=== PATIENT | male | born 1995 | race Caucasian/White ===

== ENCOUNTER 2017-01-05 20:32 | Emergency (ER) | payer OTHER ==
[~2017-01-05] VITALS: Ht 180.3 cm; Wt 63.5 kg
[2017-01-05 20:50] VITALS: BP 110/66
[2017-01-05] MEDS ORDERED: NAPR500T PO (20:52)
--- NOTE | 2017-01-05 20:53 | PHYS DOC ---
Past History Past Medical History: No Pertinent History Past Surgical History: No Surgical History Smoking: Cigarettes Social History Adult General HPI HPI Patient is a 21 year old male who presents with right foot pain. Twisted his foot around 1600 PM. Has pain and swelling now to right lateral foot area. No other injuries. Review of Systems Review of Systems Musculoskeletal: right foot pain Integument: Denies rash or skin lesions; no laceration. Neurologic: Denies headache, focal weakness or sensory changes Physical Exam Physical Exam Constitutional: Well developed, well nourished, no acute distress, non-toxic appearance. Extremities:Right lower leg: no pain or swelling of knee or ankle. NVI distally ; normal cap refill. Right foot with pain, swelling and ecchymosis over base of the 5th MT. Neurologic: Alert and oriented X 3, normal motor function, normal sensory function, no focal deficits noted. Radiology/Procedures Radiology/Procedures Right foot xray interpreted by myself at 2100 PM: fracture at base of 5th MT. Course & Med Decision Making Course & Med Decision Making Evaluated patient. Xray w fracture of base of 5th MT. Placed in posterior short leg OCL splint; non weight bearing and crutches. Follow up with ortho ([place]) Dragon Disclaimer Dragon Disclaimer This chart was dictated in whole or in part using Voice Recognition software in a busy, high-work load, and often noisy Emergency Department environment. It may contain unintended and wholly unrecognized errors or omissions. Departure Departure: Impression: Primary Impression: Closed fracture of 5th metacarpal Disposition: 01 HOME, SELF-CARE Condition: STABLE Referrals: PCP,UNKNOWN (PCP) Patient Instructions: Cast or Splint Care, Crutch Use, Metatarsal Fracture with [facility] Additional Instructions: NEED TO FOLLOW UP WITH ORTHO AT [facility] Scripts Naproxen (NAPROSYN) 500 Mg Tablet 1 TAB PO BID, #30 TAB 1 Refill Prov: JEROMY PATTEN MD 01/05/17 Problem Qualifiers Primary Impression: Closed fracture of 5th metacarpal Encounter type: initial encounter Metacarpal location: base Fracture alignment: nondisplaced Laterality: right Qualified Codes: S62.346A - Nondisplaced fracture of base of fifth metacarpal bone, right hand, initial encounter for closed fracture JEROMY PATTEN MD Jan 05, 2017 20:53
[2017-01-05] MEDS ORDERED: NAPROXEN 500 MG TABLET PO ONE (21:15)
--- NOTE | 2017-01-06 07:54 | RAD ---
Exam performed: Right foot 3 views. Clinical Indication: Patient stepped on a rock and bent the foot , complaining of pain and swelling of the base of fifth metatarsal. Date of Service:01/05/17. Comparison :None available Findings: PA, oblique and lateral radiographs of the foot are obtained. There is a acute nondisplaced fracture base of fifth metatarsal with overlying soft tissue swelling. The joint spaces are well preserved and the articular margins are smooth. Impression: Acute nondisplaced fracture base of fifth metatarsal.
== END 2017-01-05 21:35 | disposition home or self-care (01) ==
LOC: ER 20:32
DX: S62.346A Nondisplaced fracture of base of fifth metacarpal bone, right hand, initial encounter for closed fracture (principal); F17.210 Nicotine dependence, cigarettes, uncomplicated; X58.XXXA Exposure to other specified factors, initial encounter; Y93.89 Activity, other specified; Y99.8 Other external cause status; Y92.89 Other specified places as the place of occurrence of the external cause
CPT/HCPCS: 29515; 73630; 99284-25

== ENCOUNTER 2018-02-14 08:51 | Emergency (ER) | payer OTHER ==
[~2018-02-14] VITALS: Ht 180.3 cm; Wt 61.2 kg
[~2018-02-14 08:51] MED LIST: NAPR-683 PO
[2018-02-14 08:55] VITALS: BP 162/109
[2018-02-14] MEDS ORDERED: IBUP800T19 PO (09:23)
--- NOTE | 2018-02-14 09:24 | PHYS DOC ---
Past History Past Medical History: No Pertinent History Past Surgical History: No Surgical History Smoking: Cigarettes Alcohol Use: None Drug Use: None Adult General Chief Complaint Chief Complaint: KNEE INJURY HPI HPI Patient is a 22 year old male who presents with complaining of left knee pain for the last 1 week after hyperextended his left knee. Patient states he has some bruises around his left that getting better. Patient denies focal neuro deficit and other injuries and states he had this problem previously. Review of Systems Review of Systems Constitutional: Denies fever or chills [] Eyes: Denies change in visual acuity, redness, or eye pain [] HENT: Denies nasal congestion or sore throat [] Respiratory: Denies cough or shortness of breath [] Cardiovascular: No additional information not addressed in HPI [] GI: Denies abdominal pain, nausea, vomiting, bloody stools or diarrhea [] : Denies dysuria or hematuria [] Musculoskeletal: Denies back pain, reports joint pain [] Integument: Denies rash or skin lesions [] Neurologic: Denies headache, focal weakness or sensory changes [] Endocrine: Denies polyuria or polydipsia [] All other systems were reviewed and found to be within normal limits, except as documented in this note. Physical Exam Physical Exam Constitutional: Well developed, well nourished, no acute distress, non-toxic appearance. [] HENT: Normocephalic, atraumatic Eyes: PERRLA, EOMI, conjunctiva normal, no discharge. [] Neck: Normal range of motion, no tenderness, supple, no stridor. [] Cardiovascular:Heart rate regular rhythm, no murmur [] Lungs & Thorax: Bilateral breath sounds clear to auscultation [] Skin: Warm, dry, no erythema, no rash. [] Back: No tenderness, no CVA tenderness. [] Extremities: Left knee without deformity or edema or ecchymosis, normal range of motion, no tenderness, no cyanosis, no clubbing, ROM intact, no edema. [] Neurologic: Alert and oriented X 3, normal motor function, normal sensory function, no focal deficits noted. [] Psychologic: Affect normal, judgement normal, mood normal. [] EKG EKG [] Radiology/Procedures Radiology/Procedures [] Course & Med Decision Making Course & Med Decision Making discharge: I've spoken with the patient and/or caregivers. I've explained the patient's condition, diagnosis and treatment plan based on information available to me at this time. I've answered the patient's and/or caregivers questions and addressed any concerns. The patient and/or caregivers have a good understanding the patient's diagnosis, condition and treatment plan as can be expected at this point. Vital signs have been stabilized. The patient's condition is stable for discharge from the emergency department. The patient will pursue further outpatient evaluation with her primary care provider or other designated consulting physician as outlined in the discharge instructions. Patient and/or caregivers are agreeable to this plan of care and follow-up instructions have been explained in detail. The patient and/or caregivers have received these instructions in written format and expressed understanding of these discharge instructions. The patient and her caregivers are aware that if any significant change in condition or worsening of symptoms should prompt him to immediately return to this of the closest emergency department. If an emergent department is not readily available I would encourage him to call 911. Dragon Disclaimer Dragon Disclaimer This electronic medical record was generated, in whole or in part, using a voice recognition dictation system. Departure Departure: Impression: Primary Impression: Knee sprain Additional Impression: Elevated blood pressure reading without diagnosis of hypertension Disposition: HOME, SELF-CARE (At 0921) Condition: STABLE Referrals: LEE PRECIADO PA-C (PCP) Patient Instructions: Form - Blood Pressure Record Sheet, How to Take Your Blood Pressure, [id number], Knee Sprain Additional Instructions: Apply ice on left knee Follow-up with your primary care physician in 3-5 days Return to ER if not getting better Scripts Ibuprofen (IBUPROFEN) 800 Mg Tablet 800 MG PO TID PRN for PAIN, #30 TAB Prov: GISELLE HAYES MD 02/14/18 Problem Qualifiers GISELLE HAYES MD Feb 14, 2018 09:24
== END 2018-02-14 09:35 | disposition home or self-care (01) ==
LOC: ER 08:51
DX: S83.92XA Sprain of unspecified site of left knee, initial encounter (principal); R03.0 Elevated blood-pressure reading, without diagnosis of hypertension; F17.210 Nicotine dependence, cigarettes, uncomplicated; X50.9XXA Other and unspecified overexertion or strenuous movements or postures, initial encounter; Y93.89 Activity, other specified; Y92.89 Other specified places as the place of occurrence of the external cause; Y99.8 Other external cause status
CPT/HCPCS: 99282

== ENCOUNTER 2018-07-15 21:10 | Emergency (ER) | payer OTHER ==
[~2018-07-15] VITALS: Ht 180.3 cm; Wt 68.0 kg
[~2018-07-15 21:10] MED LIST changes: +IBUP800T19 PO
--- NOTE | 2018-07-15 21:35 | ED.ADGEN ---
Past History Past Medical History: No Pertinent History Past Surgical History: No Surgical History Smoking: Cigarettes Alcohol Use: None Drug Use: None Adult General Chief Complaint Chief Complaint ".. All of a sudden I got this really bad dental pain... 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 Patient does have findings of dental decay and prior dental fillings. No pointing abscess. No trismus. No adenopathy. No history immunosuppression. No history of trauma. No history of travel. No history of specific ill contacts. She normally follows at [facility]. Has not been overseas recently. Review of Systems Review of Systems Constitutional: Denies fever or chills [] Eyes: Denies change in visual acuity, redness, or eye pain [] HENT: Denies nasal congestion or sore throat []complaints of dental pain Respiratory: Denies cough or shortness of breath [] Cardiovascular: No additional information not addressed in HPI [] GI: Denies abdominal pain, nausea, vomiting, bloody stools or diarrhea [] : Denies dysuria or hematuria [] Musculoskeletal: Denies back pain or joint pain [] Integument: Denies rash or skin lesions [] Neurologic: Denies headache, focal weakness or sensory changes [] Endocrine: Denies polyuria or polydipsia [] All other systems were reviewed and found to be within normal limits, except as documented in this note. Family History Family History Noncontributory Current Medications Current Medications Current Medications Medications (Trade) Dose Ordered Sig/Ashley Start Time Stop Time Status Last Admin Dose Admin Cephalexin HCl (Keflex) 250 mg STK-MED ONCE 07/15/18 22:20 07/15/18 22:34 DC Hydrocodone Bitartrate/ Ibuprofen (Vicoprofen 7.5-200) 1 tab STK-MED ONCE 07/15/18 22:21 07/15/18 22:34 DC Allergies Allergies Allergies Coded Allergies Type Severity Reaction Last Updated Verified No Known Drug Allergies 02/14/18 No Physical Exam Physical Exam Constitutional: Well developed, well nourished, in acute distress, non-toxic appearance. [] HENT: Normocephalic, atraumatic, bilateral external ears normal, oropharynx moist, no oral exudates, nose normal. []Some gingivitis. Fillings. Molar tenderness on percussion left posterior Eyes: PERRLA, EOMI, conjunctiva normal, no discharge. [] Neck: Normal range of motion, no tenderness, supple, no stridor. [] Cardiovascular:Heart rate regular rhythm, no murmur [] Lungs & Thorax: Bilateral breath sounds equal at apex on auscultation [] Abdomen: Bowel sounds normal, soft, no tenderness, no masses, no pulsatile masses. [] Skin: Warm, dry, no erythema, no rash. [] Back: No tenderness, no CVA tenderness. [] Extremities: No tenderness, no cyanosis, no clubbing, ROM intact, no edema. [] Neurologic: Alert and oriented X 3, normal motor function, normal sensory function, no focal deficits noted. [] Psychologic: Affect normal, judgement normal, mood normal. [] Current Patient Data Vital Signs Vital Signs Date Time Temp Pulse Resp B/P (MAP) Pulse Ox O2 Delivery O2 Flow Rate FiO2 07/15/18 21:44 98.1 69 17 98 Room Air EKG EKG [] Radiology/Procedures Radiology/Procedures [] Course & Med Decision Making Course & Med Decision Making Pertinent Labs and Imaging studies reviewed. (See chart for details) Follow-up with [facility]. Take Keflex 500 mg 3 times a day. Tylenol and ibuprofen for pain. For marked pain may take Vicoprofen up 4 times a day. Must see a dentist. [] Final Impression Final Impression 1. Dental Pain[] 2. Dental caries 3. Mild gingivitis Dragon Disclaimer Dragon Disclaimer This electronic medical record was generated, in whole or in part, using a voice recognition dictation system. Dragon Disclaimer This chart was dictated in whole or in part using Voice Recognition software in a busy, high-work load, and often noisy Emergency Department environment. It may contain unintended and wholly unrecognized errors or omissions. 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 Discharge Information Condition at Discharge: Stable Disposition/Orders: D/C to Home Dischare Medications Current Medications Hydrocodone Bitartrate/ Ibuprofen (Vicoprofen 7.5-200) 2 tab 1X ONCE PO Last administered on 07/15/18at 22:25; Admin Dose 2 TAB; Start 07/15/18 at 22:15; Stop 07/15/18 at 22:34; Status DC Cephalexin HCl (Keflex) 500 mg 1X ONCE PO Last administered on 07/15/18at 22:24 ; Admin Dose 500 MG; Start 07/15/18 at 22:15; Stop 07/15/18 at 22:34; Status DC Hydrocodone Bitartrate/ Ibuprofen (Vicoprofen 7.5-200) 1 tab STK-MED ONCE .ROUTE ; Start 07/15/18 at 22:21; Stop 07/15/18 at 22:34; Status DC Cephalexin HCl (Keflex) 250 mg STK-MED ONCE .ROUTE ; Start 07/15/18 at 22:20; Stop 07/15/18 at 22:34; Status DC Active Scripts Active Keflex (Cephalexin) 500 Mg Capsule 500 Mg PO TID 10 Days Hydrocodone-Ibuprofen 7.5-200 (Hydrocodone/Ibuprofen) 1 Each Tablet 1 Tab PO PRN Q6HRS PRN Ibuprofen 800 Mg Tablet 800 Mg PO TID PRN Naprosyn (Naproxen) 500 Mg Tablet 1 Tab PO BID TOYIN CUMMINGS MD Jul 15, 2018 21:35
[2018-07-15 21:44] VITALS: BP 112/65
[2018-07-15] MEDS ORDERED: CEPH-264 PO (22:13)
[2018-07-15] MEDS ORDERED: HYDR-1179 PO (22:13)
[2018-07-15] MEDS ORDERED: HYDROcodon/IBUPROFEN 7.5/200MG 1 TAB TABLET PO ONE (22:15)
[2018-07-15] MEDS ORDERED: CEPHALEXIN 250 MG CAPSULE PO ONE (22:15)
[2018-07-15] MEDS ORDERED: CEPHALEXIN 250 MG CAPSULE ONE (22:20)
[2018-07-15] MEDS ORDERED: HYDROcodon/IBUPROFEN 7.5/200MG 1 TAB TABLET ONE (22:21)
== END 2018-07-15 22:25 | disposition home or self-care (01) ==
LOC: ER 21:10
DX: K02.9 Dental caries, unspecified (principal); K05.10 Chronic gingivitis, plaque induced; F17.210 Nicotine dependence, cigarettes, uncomplicated
CPT/HCPCS: 99283

== ENCOUNTER 2018-07-22 01:07 | Emergency (ER) | payer OTHER ==
[~2018-07-22] VITALS: Ht 180.3 cm; Wt 63.5 kg
[~2018-07-22 01:07] MED LIST changes: +CEPH-264 PO; +HYDR-1179 PO
[2018-07-22 01:13] VITALS: BP 104/63
[2018-07-22] MEDS ORDERED: CLIN300C8 PO (01:35)
[2018-07-22] MEDS ORDERED: TRAM50TA PO (01:35)
--- NOTE | 2018-07-22 01:36 | PHYS DOC ---
Past History Past Medical History: No Pertinent History Past Surgical History: No Surgical History Smoking: Cigarettes Alcohol Use: None Drug Use: None Adult General Chief Complaint Chief Complaint: DENTAL PROBLEM HPI HPI Patient is a 22-year-old male who presents with left lower dental pain that started a couple of days ago hand pain is gotten much worse tonight. He rates pain at an 8 out of 10 and describes it as a throb. He denies any fever, nausea or vomiting. Patient states the pain is worsened with chewing and with hot and cold. Review of Systems Review of Systems Constitutional: Denies fever or chills [] HENT: Positive dental pain[] Respiratory: Denies cough or shortness of breath [] Cardiovascular: No additional information not addressed in HPI [] Neurologic: Denies headache, focal weakness or sensory changes [] Allergies Allergies Allergies Coded Allergies Type Severity Reaction Last Updated Verified No Known Drug Allergies 02/14/18 No Physical Exam Physical Exam Constitutional: Well developed, well nourished, no acute distress, non-toxic appearance. [] HENT: Normocephalic, atraumatic, dentition demonstrates moderate dental caries in the left lower first and second molars. [] Neck: Normal range of motion, no tenderness, supple, no stridor. [] Cardiovascular:Heart rate regular rhythm, no murmur [] Lungs & Thorax: Bilateral breath sounds clear to auscultation [] Neurologic: Alert and oriented X 3, no focal deficits noted. [] Current Patient Data Vital Signs Vital Signs Date Time Temp Pulse Resp B/P (MAP) Pulse Ox O2 Delivery O2 Flow Rate FiO2 07/22/18 01:13 97.8 67 20 98 Room Air EKG EKG [] Radiology/Procedures Radiology/Procedures [] Course & Med Decision Making Course & Med Decision Making Pertinent Labs and Imaging studies reviewed. (See chart for details) [] Dragon Disclaimer Dragon Disclaimer This electronic medical record was generated, in whole or in part, using a voice recognition dictation system. Departure Departure: Impression: Primary Impression: Pain due to dental caries Disposition: HOME, SELF-CARE Condition: STABLE Referrals: LEE PRECIADO PA-C (PCP) Patient Instructions: Dental Caries, Dental Pain Scripts Clindamycin Hcl (CLINDAMYCIN HCL) 300 Mg Capsule 300 MG PO QID for infection, #40 CAP Prov: TERE ROPER Jr. DO 07/22/18 Tramadol Hcl (TRAMADOL HCL) 50 Mg Tablet 50 MG PO PRN Q6HRS PRN for PAIN, #12 TAB Prov: TERE ROPER Jr. DO 07/22/18 TERE ROPER Jr. DO Jul 22, 2018 01:36
[2018-07-22] MEDS ORDERED: CLINDAMYCIN HCL 150 MG CAPSULE PO ONE (02:00)
[2018-07-22] MEDS ORDERED: traMADol 50 MG TABLET PO ONE (02:00)
== END 2018-07-22 01:41 | disposition home or self-care (01) ==
LOC: ER 01:07
DX: K02.9 Dental caries, unspecified (principal); F17.210 Nicotine dependence, cigarettes, uncomplicated
CPT/HCPCS: 99283

== ENCOUNTER 2019-03-05 12:26 | Emergency (ER) | payer OTHER ==
[~2019-03-05 12:26] MED LIST changes: +CLIN300C8 PO; +TRAM50TA PO
--- NOTE | 2019-03-05 13:40 | PHYS DOC ---
Past History Past Medical History: No Pertinent History Past Surgical History: No Surgical History Smoking: Cigarettes Alcohol Use: None Drug Use: None Adult General Chief Complaint Chief Complaint: COUGH HPI HPI Patient is a 23-year-old male who presents with complaint of productive cough for the last few days. Patient states the cough is been progressively getting worse. He states that today he noticed some blood mixed in with the sputum and decided that he better be checked out. He denies any fever. He denies any chest pain or shortness of breath. He does admit to nasal drainage that is yellow and purulent at times.[] Review of Systems Review of Systems Constitutional: Denies fever or chills [] HENT: Positive congestion without sore throat [] Respiratory: Positive productive cough without shortness of breath [] Cardiovascular: No additional information not addressed in HPI [] Neurologic: Denies headache, focal weakness or sensory changes [] Allergies Allergies Allergies Coded Allergies Type Severity Reaction Last Updated Verified No Known Drug Allergies 02/14/18 No Physical Exam Physical Exam Constitutional: Well developed, well nourished, no acute distress, non-toxic appearance. [] HENT: Normocephalic, atraumatic, bilateral external ears normal, oropharynx moist, no oral exudates, nose normal. [] Cardiovascular:Heart rate regular rhythm, no murmur [] Lungs & Thorax: Fine right sided upper rhonchi are noted to auscultation [] Extremities: No tenderness, no cyanosis, no clubbing, ROM intact, no edema. [] EKG EKG [] Radiology/Procedures Radiology/Procedures [] Course & Med Decision Making Course & Med Decision Making Pertinent Labs and Imaging studies reviewed. (See chart for details) [] Dragon Disclaimer Dragon Disclaimer This electronic medical record was generated, in whole or in part, using a voice recognition dictation system. Departure Departure: Impression: Primary Impression: Acute bronchitis Disposition: 01 HOME, SELF-CARE Condition: STABLE Referrals: LEE PRECIADO PA-C (PCP) Patient Instructions: Acute Bronchitis Scripts Azithromycin (ZITHROMAX) 250 Mg Tablet 1 PKG PO UD for infection, #6 TAB Prov: TERE ROPER Jr. DO 03/05/19 Problem Qualifiers Primary Impression: Acute bronchitis Bronchitis organism: unspecified organism Qualified Codes: J20.9 - Acute bronchitis, unspecified TERE ROPER Jr. DO Mar 05, 2019 13:40
[2019-03-05] MEDS ORDERED: AZIT250T PO (14:15)
--- NOTE | 2019-03-05 14:15 | RAD ---
CHEST PA LATERAL Clinical indications: Cough. COMPARISON: None available. Findings: No acute lung infiltrate or pleural effusion or pulmonary edema or lung mass or pneumothorax is seen. The heart size, pulmonary vasculature, mediastinum and both mikey are unremarkable. The osseous structures appear intact. Impression: No acute radiographic abnormality is seen. Electronically signed by: Tho Meza MD (03/05/2019 2:12 PM) [id number]
[2019-03-05 14:17] VITALS: BP 105/64
== END 2019-03-05 14:45 | disposition home or self-care (01) ==
LOC: ER 12:26
DX: J20.9 Acute bronchitis, unspecified (principal); F17.210 Nicotine dependence, cigarettes, uncomplicated
CPT/HCPCS: 71046; 99284

== ENCOUNTER 2019-05-10 06:49 | Emergency (ER) | payer OTHER ==
[~2019-05-10] VITALS: Ht 182.9 cm; Wt 63.0 kg
[~2019-05-10 06:49] MED LIST changes: +AZIT250T PO
[2019-05-10] MEDS ORDERED: IV NORMAL SALINE 1,000ML 1,000 ML IV SCH (07:48)
--- NOTE | 2019-05-10 07:51 | PHYS DOC ---
Past History Past Medical History: No Pertinent History Past Surgical History: No Surgical History Smoking: Cigarettes Alcohol Use: None Drug Use: None Adult General Chief Complaint Chief Complaint: NAUSEA/VOMITING/[facility] HPI Patient is a 23-year-old male who presented to ER today for evaluation of lower abdominal pain associated with nausea vomiting since yesterday. Patient denies any fever or chill. Patient said he cannot keep anything down. he denies any diarrhea, no blood in his stool. Patient denies any vomiting blood. All other ROS is negative unless otherwise noted in HPI Review of Systems Review of Systems See above Allergies Allergies Allergies Coded Allergies Type Severity Reaction Last Updated Verified No Known Drug Allergies 02/14/18 No Physical Exam Physical Exam See above Constitutional: Well developed, well nourished, no acute distress, non-toxic appearance. [] HENT: Normocephalic, atraumatic, bilateral external ears normal, oropharynx moist, no oral exudates, nose normal. [] Eyes: PERRLA, EOMI, conjunctiva normal, no discharge. [] Neck: Normal range of motion, no tenderness, supple, no stridor. [] Cardiovascular:Heart rate regular rhythm, no murmur [] Lungs & Thorax: Bilateral breath sounds clear to auscultation [] Abdomen: Bowel sounds normal, soft, There is tenderness to palpation in suprapubic and periumbillical area, no masses, no pulsatile masses. [] Skin: Warm, dry, no erythema, no rash. [] Back: No tenderness, no CVA tenderness. [] Extremities: No tenderness, no cyanosis, no clubbing, ROM intact, no edema. [] Neurologic: Alert and oriented X 3, normal motor function, normal sensory function, no focal deficits noted. [] Psychologic: Affect normal, judgement normal, mood normal. [] EKG EKG [] Radiology/Procedures Radiology/Procedures [][address] [id number] IMAGING REPORT Signed PATIENT: HEMANTH ANDREA: [id number] : 1995 LOCATION: ER AGE: 23 SEX: M EXAM STATUS: REG ER ORD. PHYSICIAN: XAVIER,PETER T DO REASON: abdominal pain PROCEDURE: CT ABD PELV W/ IV CONTRST ONLY PQRS Compliance Statement: One or more of the following individualized dose reduction techniques were utilized for this examination: 1. Automated exposure control 2. Adjustment of the mA and/or kV according to patient size 3. Use of iterative reconstruction technique CT abdomen/pelvis with contrast 05/10/2019 7:48 AM INDICATION: Abdominal pain COMPARISON: None available TECHNIQUE: Multiple axial CT images of the abdomen and pelvis were obtained after the intravenous administration of 75 mL Omnipaque 300. Coronal and sagittal reformats are provided. FINDINGS: Visualized portions of the lung bases are clear. Heart size is within normal limits. No suspicious hepatic masses are identified. Liver is homogeneous in enhancement. Spleen, bilateral adrenal glands, and pancreas are normal in appearance. Gallbladder is present without adjacent inflammatory changes. The abdominal aorta is normal in course and caliber. There are no pathologically enlarged lymph nodes in the abdomen and pelvis. There is no abdominal free fluid. There is no free intraperitoneal air. Incidental note is made of focal narrowing of the left renal vein between the superior mesenteric artery and aorta as well as narrowing of the distal duodenum, incompletely evaluated without oral contrast. The kidneys enhance symmetrically. There is no suspicious renal mass. There is no hydronephrosis. There are no suspected calculi within the kidneys, ureters or urinary bladder. Small and large bowel are normal in caliber. There is no evidence for bowel obstruction. There are no pericolonic inflammatory changes. A normal, nondilated appendix is visualized without adjacent inflammatory changes. Nonspecific calcification noted within the ventral peritoneum, immediately deep to the umbilicus. This could be associated with a urachal remnant. Urinary bladder is within normal limits given degree of distention. Prostate and seminal vesicles appear normal. No suspicious osseous abnormality is identified. IMPRESSION: No acute abnormalities identified in abdomen and pelvis. 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 Electronically signed by: Anne Kim MD (05/10/2019 8:55 AM) [id number] DICTATED AND SIGNED BY: ANNE KIM MD DATE: 05/10/19 0855 CC: LEE PRECIADO PA-C; DINESH XAVIER DO ~ Course & Med Decision Making Course & Med Decision Making Pertinent Labs and Imaging studies reviewed. (See chart for details) Patient was given IV fluid and pain medication, nausea medication. Patient felt much better. Lab work and CT scan of the abdomen and pelvic did not show any acute problem. Patient was discharged home. Dragon Disclaimer Dragon Disclaimer This electronic medical record was generated, in whole or in part, using a voice recognition dictation system. Departure Departure: Impression: Primary Impression: Abdominal pain Disposition: HOME, SELF-CARE Condition: STABLE Referrals: LEE PRECIADO PA-C (PCP) please follow up with your doctor as needed this week. Patient Instructions: Abdominal Pain Scripts Ondansetron Hcl (ZOFRAN) 8 Mg Tablet 1 TAB PO Q8HRS PRN for NAUSEA/VOMITING, #15 TAB 1 Refill Prov: DINESH XAVIER DO 05/10/19 DINESH XAVIER DO May 10, 2019 07:51
[2019-05-10] MEDS ORDERED: ONDANSETRON PF 4 MG/2 ML VIAL. IVP ONE (08:00)
[2019-05-10] MEDS ORDERED: CONTRAST GIVEN MC PRN (08:00)
[2019-05-10] MEDS ORDERED: MORPHINE SULFATE 4 MG/ML DISP.SYRIN. IV ONE (08:00)
[2019-05-10] MEDS ORDERED: IOHEXOL 300 MG/ML 75 ML VIAL. IV ONE (08:00)
[2019-05-10 08:10] LABS: BASO % 0 % (0-3); EOS # 0.1 x10^3/uL (0.0-0.7); EOS % 1 % (0-3); HEMATOCRIT 46.4 % (39.0-53.0); HEMOGLOBIN 16.1 g/dL (13.0-17.5); LYMPH # 2.7 x10^3/uL (1.0-4.8); LYMPH % 30 % (24-48); MEAN CORPUSCULAR HEMOGLOBIN 29 pg (25-35); MEAN CORPUSCULAR HGB CONC 35 g/dL (31-37); MEAN CORPUSCULAR VOLUME 84 fL (79-100); MONO # 0.7 x10^3/uL (0.0-1.1); MONO % 7 % (0-9); NEUT # 5.6 x10^3uL (1.8-7.7); NEUT % 61 % (31-73); PLATELET COUNT 227 x10^3/uL (140-400); RED BLOOD COUNT 5.51 x10^6/uL (4.30-5.70); RED CELL DISTRIBUTION WIDTH 12.7 % (11.5-14.5); WHITE BLOOD COUNT 9.1 x10^3/uL (4.0-11.0)
[2019-05-10 08:21] LABS: CALCIUM 9.6 mg/dL (8.5-10.1); GFR 94.3; POTASSIUM 4.1 mmol/L (3.5-5.1)
[2019-05-10 08:27] LABS: ALBUMIN 4.3 g/dL (3.4-5.0); ALBUMIN/GLOBULIN RATIO 1.3 (1.0-1.7); TOTAL BILIRUBIN 0.8 mg/dL (0.2-1.0); TOTAL PROTEIN 7.7 g/dL (6.4-8.2)
[2019-05-10 08:39] LABS: BILIRUBIN,URINE NEG (NEG); CLARITY,URINE HAZY; COLOR,URINE AMBER; GLUCOSE,URINE NEG (NEG); NITRITE,URINE NEG (NEG); RBC,URINE OCC /HPF (0-2); UROBILINOGEN,URINE 0.2 mg/dL (0.2 mg/dL)
[2019-05-10 08:40] LABS: BACTERIA,URINE FEW /HPF (0-FEW); SQUAMOUS EPITHELIAL CELL,UR OCC /LPF
--- NOTE | 2019-05-10 08:57 | RAD ---
PQRS Compliance Statement: One or more of the following individualized dose reduction techniques were utilized for this examination: 1. Automated exposure control 2. Adjustment of the mA and/or kV according to patient size 3. Use of iterative reconstruction technique CT abdomen/pelvis with contrast 05/10/2019 7:48 AM INDICATION: Abdominal pain COMPARISON: None available TECHNIQUE: Multiple axial CT images of the abdomen and pelvis were obtained after the intravenous administration of 75 mL Omnipaque 300. Coronal and sagittal reformats are provided. FINDINGS: Visualized portions of the lung bases are clear. Heart size is within normal limits. No suspicious hepatic masses are identified. Liver is homogeneous in enhancement. Spleen, bilateral adrenal glands, and pancreas are normal in appearance. Gallbladder is present without adjacent inflammatory changes. The abdominal aorta is normal in course and caliber. There are no pathologically enlarged lymph nodes in the abdomen and pelvis. There is no abdominal free fluid. There is no free intraperitoneal air. Incidental note is made of focal narrowing of the left renal vein between the superior mesenteric artery and aorta as well as narrowing of the distal duodenum, incompletely evaluated without oral contrast. The kidneys enhance symmetrically. There is no suspicious renal mass. There is no hydronephrosis. There are no suspected calculi within the kidneys, ureters or urinary bladder. Small and large bowel are normal in caliber. There is no evidence for bowel obstruction. There are no pericolonic inflammatory changes. A normal, nondilated appendix is visualized without adjacent inflammatory changes. Nonspecific calcification noted within the ventral peritoneum, immediately deep to the umbilicus. This could be associated with a urachal remnant. Urinary bladder is within normal limits given degree of distention. Prostate and seminal vesicles appear normal. No suspicious osseous abnormality is identified. IMPRESSION: No acute abnormalities identified in abdomen and pelvis. 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 Electronically signed by: Eloisa Reyes MD (05/10/2019 8:55 AM) [id number]
[2019-05-10] MEDS ORDERED: ONDA8TAB9 PO (09:12)
[2019-05-10 10:06] VITALS: BP 96/45
== END 2019-05-10 10:11 | disposition home or self-care (01) ==
LOC: ER 06:49
DX: R10.10 Upper abdominal pain, unspecified (principal); R10.33 Periumbilical pain; R11.2 Nausea with vomiting, unspecified; F17.210 Nicotine dependence, cigarettes, uncomplicated
CPT/HCPCS: 36415; 74177; 80053; 81001; 83690; 85025; 96361; 96374; 96375; 99285; J2270; J2405; Q9967; J7030